=== PATIENT | female | born 1995 | race Asian ===

== ENCOUNTER 2020-03-31 11:14 | Emergency (ER) | payer MEDICAID ==
[2020-03-31] MEDS ORDERED: HYDROcod/ACETAM 5/325 MG TABLET PO STA (11:31)
[2020-03-31] MEDS ORDERED: SILVER SULFADIAZINE CREAM 25 GM TUBE TOP STA (11:32)
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
[2020-03-31 13:08] VITALS: BP 122/84
== END 2020-03-31 13:02 | disposition home or self-care (01) ==
LOC: ED 11:14
DX: T23.251A Burn of second degree of right palm, initial encounter (principal); W01.198A Fall on same level from slipping, tripping and stumbling with subsequent striking against other object, initial encounter; X15.0XXA Contact with hot stove (kitchen), initial encounter; Y92.000 Kitchen of unspecified non-institutional (private) residence as the place of occurrence of the external cause
CPT/HCPCS: 99282; 99284; A9270

== ENCOUNTER 2020-10-08 20:15 | Emergency (ER) | payer MEDICAID ==
[2020-10-08] MEDS ORDERED: ONDANSETRON 4 MG/2 ML VIAL IVP STA (20:49)
[2020-10-08] MEDS ORDERED: SODIUM CHLORIDE 0.9% 1,000 ML IV STA (20:49)
--- NOTE | 2020-10-08 20:49 | ED Physician Documentation ---
PD HPI NVD - Stated complaint Stated Complaint: FATIGUE,VOMITING - Chief complaint Chief Complaint: Abd Pain - History obtained from History obtained from: Patient - History of Present Illness Timing - onset: Last night Timing - details: Gradual onset Pain level max: 0 Pain level now: 0 Associated symptoms: No: Fever, Abdominal pain Contributing factors: No: Recent antibiotics Similar symptoms before: Has not had sx before Recently seen: Not recently seen - Additonal information Additional information: patient c/o nausea, vomiting, diarrhea since last night, becoming associated wit h increasing fatigue, generalized weakness, and generalized myalgias. Denies fever. Denies pain including abdominal pain Review of Systems Constitutional: reports: Myalgias, Fatigue. denies: Fever, Chills, Sweats Cardiac: reports: Reviewed and negative Respiratory: reports: Reviewed and negative GI: reports: Nausea, Vomiting, Diarrhea. denies: Abdominal Pain : denies: Dysuria, Frequency, Now EGA PD PAST MEDICAL HISTORY - Past Medical History Past Medical History: Yes Cardiovascular: None Respiratory: None Neuro: None Endocrine/Autoimmune: None GI: None RN RESEARCH: None : None HEENT: None Psych: ADD/ADHD Musculoskeletal: None Derm: None - Past Surgical History Past Surgical History: Yes /RN RESEARCH: section - Present Medications Home Medications: Ambulatory Orders Medication Instructions Recorded Confirmed Diphenoxylate/Atropine [Lomotil] 1 each PO QID PRN #10 tablet 10/08/20 Ondansetron Odt [Zofran] 4 mg TL Q6H PRN #10 tablet 10/08/20 - Allergies Allergies/Adverse Reactions: Allergies Allergy/AdvReac Type Severity Reaction Status Date / Time No Known Drug Allergies Allergy Verified 10/08/20 20:33 - Social History Does the pt smoke?: No Smoking Status: Never smoker Does the pt drink ETOH?: Yes Does the pt have substance abuse?: No - Immunizations Immunizations are current?: Yes PD ED PE NORMAL - Vitals Vital signs reviewed: Yes - General General: Alert and oriented X 3, No acute distress, Well developed/nourished - HEENT HEENT: Other (tacky/pasty mucous membranes) - Neck Neck: Supple, no meningeal sign - Cardiac Cardiac: No murmur - Respiratory Respiratory: No respiratory distress, Clear bilaterally - Abdomen Abdomen: Soft, Non tender, Non distended - Back Back: No CVA TTP - Derm Derm: Normal color, Warm and dry PD ED PE EXPANDED - Cardiac Cardiac: Tachy, Regular Rhythm Results - Vitals Vitals: Oxygen O2 Source Room air - Labs Labs: Laboratory Tests 10/08/20 10/08/20 10/08/20 20:48 20:48 22:08 WBC 7.1 RBC 4.26 Hgb 14.3 Hct 40.3 MCV 94.6 MCH 33.6 H MCHC 35.5 RDW 11.5 L Plt Count 200 MPV 9.1 Neut # (Auto) 6.2 Lymph # (Auto) 0.6 L Tillman # (Auto) 0.2 Eos # (Auto) 0.0 Baso # (Auto) 0.0 Absolute Nucleated RBC 0.00 Nucleated RBC % 0.0 Sodium 135 Potassium 3.4 L Chloride 101 Carbon Dioxide 23 Anion Gap 11.0 BUN 13 Creatinine 0.6 Estimated GFR (MDRD) 121 Glucose 123 H Calcium 8.5 Total Bilirubin 0.9 AST 18 ALT 18 Alkaline Phosphatase 44 Total Protein 7.4 Albumin 4.0 Globulin 3.4 Albumin/Globulin Ratio 1.2 Lipase 22 Urine Color YELLOW Urine Clarity CLEAR Urine pH 6.0 Ur Specific [place] 1.025 Urine Protein TRACE Urine Glucose (UA) NEGATIVE Urine Ketones NEGATIVE Urine Occult Blood MODERATE H Urine Nitrite NEGATIVE Urine Bilirubin NEGATIVE Urine Urobilinogen 0.2 (NORMAL) Ur Leukocyte Esterase NEGATIVE Urine RBC 6-10 H Urine WBC 0-3 Ur Squamous Epith Cells MANY Squamous H Urine Bacteria Few Ur Microscopic Review INDICATED Urine Culture Comments NOT INDICATED Urine HCG, Qual NEGATIVE PD MEDICAL DECISION MAKING - ED course Complexity details: reviewed results, re-evaluated patient, considered differential, d/w patient ED course: presents with nausea, vomiting, and diarrhea. Nontender on exam and no pain c/o. Reassuring blood tests and UA, minimal hypokalemia incidentally noted (3.5 K). She reports significant improvement after IV fluids and zofran. She is given lomotil and zofran take-home prior to d/c. Encouraged to return if worse, f/u with PMD Departure - Departure Disposition: 01 Home, Self Care Clinical Impression: Vomiting, Diarrhea Condition: Good Instructions: ED Diet Vomiting Diarrhea, ED Vomiting Diarrhea Nonspecific Ad Prescriptions: Diphenoxylate/Atropine [Lomotil] 1 each PO QID PRN #10 tablet PRN Reason: Diarrhea Ondansetron Odt [Zofran] 4 mg TL Q6H PRN #10 tablet PRN Reason: Nausea / Vomiting Forms: Activity restrictions Discharge Date/Time: 10/08/20 22:43
[2020-10-08 20:54] LABS: BASOPHILS % (AUTO) 0.4 %; HCT - HEMATOCRIT 40.3 % (37.0-47.0); HGB - HEMOGLOBIN 14.3 g/dL (12.0-16.0); LYMPHOCYTES # (AUTO) 0.6 10^3/uL (1.5-3.5); LYMPHOCYTES % (AUTO) 8.2 %; MEAN CORPUSCULAR HEMOGLOBIN 33.6 pg (27.0-31.0); MEAN CORPUSCULAR HGB CONC 35.5 g/dL (32.0-36.0); MEAN CORPUSCULAR VOLUME 94.6 fL (81.0-99.0); MEAN PLATELET VOLUME 9.1 fL (7.9-10.8); MONOCYTES # (AUTO) 0.2 10^3/uL (0.0-1.0); NEUTROPHILS # (AUTO) 6.2 10^3/uL (1.5-6.6); NEUTROPHILS % (AUTO) 88.3 %; PLT - PLATELET COUNT 200 10^3/uL (130-450); RED BLOOD COUNT 4.26 10^6/uL (4.20-5.40); RED CELL DISTRIBUTION WIDTH 11.5 % (12.0-15.0); WHITE BLOOD COUNT 7.1 x10^3/uL (4.8-10.8)
[2020-10-08 21:05] LABS: ALBUMIN/GLOBULIN RATIO 1.2 (1.0-2.2); BILIRUBIN,TOTAL 0.9 mg/dL (0.2-1.0); CALCIUM 8.5 mg/dL (8.5-10.3); CREATININE 0.6 mg/dL (0.4-1.0); POTASSIUM 3.4 mmol/L (3.5-5.0); TOTAL PROTEIN 7.4 g/dL (6.7-8.2)
[2020-10-08 22:17] LABS: BILIRUBIN,URINE NEGATIVE (NEGATIVE); GLUCOSE, URINE (UA) NEGATIVE (NEGATIVE); KETONES,URINE (UA) NEGATIVE (NEGATIVE); LEUKOCYTE ESTERASE, URINE NEGATIVE (NEGATIVE); NITRITE,URINE NEGATIVE (NEGATIVE); OCCULT BLOOD,URINE MODERATE (NEGATIVE); PROTEIN,URINE TRACE mg/dL (NEGATIVE); UROBILINOGEN,URINE 0.2 (NORMAL) E.U./dL (NORMAL)
[2020-10-08 22:20] LABS: CLARITY,URINE CLEAR (CLEAR); HCG UR QUAL NEGATIVE
[2020-10-08] MEDS ORDERED: DIPHENOX/ATROPINE 2.5/0.025 MG TABLET PO STA (22:21)
[2020-10-08] MEDS ORDERED: ONDANSETRON ODT 4 MG Prepack 2 TL PRN (22:27)
[2020-10-08 22:28] LABS: BACTERIA,URINE Few /HPF (None Seen); SQUAMOUS EPITHELIAL CELL,UR MANY Squamous (<= Few); WBC,URINE 0-3 /HPF (0-5)
[2020-10-08 22:39] VITALS: BP 93/59
== END 2020-10-08 22:43 | disposition home or self-care (01) ==
LOC: ED 20:15
DX: E87.6 Hypokalemia (principal); R19.7 Diarrhea, unspecified; R11.2 Nausea with vomiting, unspecified
CPT/HCPCS: 36415; 80053; 81001; 81025; 83690; 85025; 96374; 99283; 99284; A9270; 81003; 87086